=== PATIENT | female | born 1975 ===

== ENCOUNTER 2016-12-27 10:20 | Emergency (ER) | payer OTHER ==
[2016-12-27 10:33] VITALS: BMI 24.5
[2016-12-27] MEDS ORDERED: Sodium Chloride 0.9% 1,000 ML IV STA (10:59)
[2016-12-27] MEDS ORDERED: cefTRIAXone (Rocephin) 1 gm Inj IVPB ONE (10:59)
--- NOTE | 2016-12-27 11:02 | ED PDOC ---
HPI: General Adult Time Seen by Provider: 12/27/16 11:00 Chief Complaint (Nursing): Abdominal Pain Chief Complaint (Provider): abdominal pain/dysuria History Per: Patient (41 y/o female here with complaint of lower suprapubic pain ongoing x 1 week associated with hematuria and now notes bilateral back pain x 2 days. Has been on cipro x 4-5 days with no relief of symptoms. Denies any vomiting/notes nausea. Denies any fevers/chills. Has h/o Cxn in past.) Past Medical History Reviewed: Historical Data, Nursing Documentation, Vital Signs Vital Signs: Last Vital Signs Temp 98.0 F 12/27/16 17:04 Pulse 78 12/27/16 17:04 Resp 18 12/27/16 17:04 BP 107/67 12/27/16 17:04 Pulse Ox 98 12/27/16 17:23 - Family History Family History: States: No Known Family Hx - Home Medications Home Medications: Ambulatory Orders Medication Instructions Recorded Docusate Sodium [Colace] 100 mg PO BID #14 capsule 12/27/16 Doxycycline Monohydrate 100 mg PO BID #27 tablet 12/27/16 Metronidazole [Flagyl] 1 tab PO BID #14 tablet 12/27/16 Naproxen [Naprosyn Tab] 375 mg PO Q8 PRN #21 tab 12/27/16 Ondansetron [Zofran Odt] 4 mg PO Q8 PRN #10 odt 12/27/16 - Allergies Allergies/Adverse Reactions: Allergies Allergy/AdvReac Type Severity Reaction Status Date / Time No Known Allergies Allergy Verified 12/27/16 10:34 Review of Systems ROS Statement: Except As Marked, All Systems Reviewed And Found Negative Physical Exam - Reviewed Nursing Documentation Reviewed: Yes Vital Signs Reviewed: Yes - Physical Exam Appears: Positive for: Well, Non-toxic, No Acute Distress Head Exam: Positive for: ATRAUMATIC, NORMAL INSPECTION, NORMOCEPHALIC Skin: Positive for: Normal Color, Warm, DRY Eye Exam: Positive for: EOMI, Normal appearance, PERRL ENT: Positive for: Normal ENT Inspection Neck: Positive for: Normal, Painless ROM Cardiovascular/Chest: Positive for: Regular Rate, Rhythm Respiratory: Positive for: CNT, Normal Breath Sounds Gastrointestinal/Abdominal: Positive for: Normal Exam, Bowel Sounds, Soft Back: Positive for: Normal Inspection Extremity: Positive for: Normal ROM Neurologic/Psych: Positive for: Alert, Oriented - Laboratory Results Result Diagrams: 12/27/16 11:20 12/27/16 11:25 Urine POC: Negative Urine dip results: Negative for: Leukocyte Esterase, Blood, Nitrate, Ketones, Glucose, Bilirubin, Protein - ECG O2 Sat by Pulse Oximetry: 98 - Progress ED Course And Treament: morphine 2 mg iv x 1 dose zofran 4 mg iv x 1 dose NS 1 liter wide open ROcephin 2 gm iv x 1 dose UA wnl. CHlamydia/gonorrhea sent. CT abdomen/pelvis for evaluation of renal stone. Medical Decision Making Medical Decision Making: Time: 12:30 --Abdomen/Pelvis CT FINDINGS: There is limited evaluation of the solid organs without the administration of IV contrast. LOWER THORAX: No visible consolidation, pleural effusion, or pneumothorax. LIVER: Unremarkable unenhanced appearance. GALLBLADDER AND BILE DUCTS: Unremarkable unenhanced appearance. PANCREAS: Unremarkable unenhanced appearance. SPLEEN: 9 mm rounded structure in the left upper quadrant may reflect splenule or possibly uncalcified splenic artery aneurysm (coronal image 60, axial image 46) . Unenhanced spleen appears otherwise unremarkable. ADRENALS: Unremarkable unenhanced appearance. KIDNEYS AND URETERS: No hydronephrosis or obstructing renal calculus. BLADDER: The urinary bladder appears unremarkable. REPRODUCTIVE: Uterus is present. Enlarged somewhat cystic structure is noted within the left adnexa, possibly complex enlarged left ovarian cyst. Recommend pelvic ultrasound for further evaluation. APPENDIX: The appendix appears within normal limits of caliber. No secondary signs of acute appendicitis. BOWEL: The stomach is nondistended. Lack of oral contrast limits evaluation for bowel pathology. The bowel loops appear within normal limits of caliber without evidence of intestinal obstruction. Moderate constipation. PERITONEUM: No significant free fluid. No definite free air. LYMPH NODES: No bulky lymphadenopathy identified. VASCULATURE: No aortic aneurysm. BONES: No acute osseous abnormality is detected. OTHER FINDINGS: None. IMPRESSION: Enlarged somewhat cystic structure is noted within the left adnexa, possibly complex enlarged left ovarian cyst. Recommend pelvic ultrasound for further evaluation. 9 mm rounded structure in the left upper quadrant may reflect splenule or possibly uncalcified splenic artery aneurysm. Moderate constipation. Time: 16:25 Transvaginal US FINDINGS: UTERUS: Measures 9.2 x 5.4 x 5.1 cm. Anteverted. ENDOMETRIUM: Measures 1.2 cm in diameter. CERVIX: No cervical abnormality identified. RIGHT OVARY: Measures 3.0 x 3.3 x 2.4 cm. Blood flow is demonstrated. 2.2 x 2.2 x 1.4 cm simple appearing cyst. LEFT OVARY: Measures 5.5 x 5.3 x 4.2 cm. Blood flow is demonstrated. 3.1 x 2.5 x 3.0 cm and 3.7 x 3.0 x 2.1 cm complex cysts. FREE FLUID: No significant free fluid noted. OTHER FINDINGS: None. IMPRESSION: The left ovary is asymmetrically enlarged as compared to the right. 3.1 cm and 3.7 cm left complex ovarian cysts. Correlate clinically. Recommend 6 week ultrasound follow-up to assess for complete resolution. 2.2 cm simple appearing right ovarian cyst. Time 17:00 Upon provider reevaluation patient is feeling better, is medically stable, and requires no further treatment in the ED at this time. Patient will be discharged home with Rx for Colace 100 mg, Doxycycline Monohydrate 100 mg, Flagyl, Naprosyn 375 mg, and Zofran ODT 4 mg. Counseling was provided and all questions were answered regarding diagnosis and need for follow up with . There is agreement to discharge plan. Return if symptoms persist or worsen. Clinical Impression: Pelvic Pain and Ovarian Cyst Disposition - Clinical Impression Clinical Impression: Pelvic pain, Ovarian cyst - Patient ED Disposition Is Patient to be Admitted: No Counseled Patient/Family Regarding: Diagnosis, Need For Followup, Rx Given - Disposition [facility] Disposition: Routine/Home Disposition Time: 17:00 Condition: FAIR Prescriptions: Docusate Sodium [Colace] 100 mg PO BID #14 capsule Doxycycline Monohydrate 100 mg PO BID #27 tablet Metronidazole [Flagyl] 1 tab PO BID #14 tablet Naproxen [Naprosyn Tab] 375 mg PO Q8 PRN #21 tab PRN Reason: Pain, Moderate (4-7) Ondansetron [Zofran Odt] 4 mg PO Q8 PRN #10 odt PRN Reason: Nausea/Vomiting Instructions: Pelvic Inflammatory Disease (ED), Ovarian Cyst (ED) Forms: [facility] ED School/Work Excuse Print Language: AMHARIC
[2016-12-27 11:29] LABS: SQUAMOUS EPITHIAL 1 /hpf (0-5); URINE AMORPHOUS SEDIMENT RARE /ul (<OCC); URINE BILIRUBIN NEGATIVE (NEGATIVE); URINE BLOOD NEGATIVE (NEGATIVE); URINE CLARITY CLEAR (Clear); URINE COLOR YELLOW (YELLOW); URINE GLUCOSE (UA) NEG (Normal); URINE LEUKOCYTE ESTERASE NEG Leu/uL (Negative); URINE NITRATE NEGATIVE (NEGATIVE); URINE PROTEIN NEGATIVE (NEGATIVE); URINE UROBILINOGEN 0.2-1.0 mg/dL (0.2-1.0)
[2016-12-27] MEDS ORDERED: cefTRIAXone (Rocephin) 1 gm Inj ONE (11:33)
[2016-12-27 11:43] LABS: BASO % 0.3 % (0.0-2.0); EOS # 0.2 K/uL (0.0-0.7); EOS % 2.9 % (0.0-4.0); HEMOGLOBIN 12.9 g/dL (12.0-16.0); LYMPH # 1.9 K/uL (1.0-4.3); MEAN CELL VOLUME 88.2 fl (81.0-99.0); MEAN CORPUSCULAR HEMOGLOBIN 29.4 pg (27.0-31.0); MEAN CORPUSCULAR HGB CONC 33.4 g/dL (33.0-37.0); MEAN PLATELET VOLUME 7.7 fl (7.2-11.7); MONO # 0.5 K/uL (0.0-0.8); MONO % 6.2 % (0.0-10.0); NEUT # 5.7 K/uL (1.8-7.0); NEUT % 67.6 % (50.0-75.0); RBC 4.38 Mil/uL (3.80-5.20); WHITE BLOOD COUNT 8.4 K/uL (4.8-10.8)
[2016-12-27 11:59] LABS: ALB/GLOB RATIO 1.3 (1.0-2.1); ALBUMIN 4.2 g/dL (3.5-5.0); ALT/SGPT 30 U/L (9-52); AST/SGOT 32 U/L (14-36); BLOOD UREA NITROGEN 12 mg/dl (7-17); CALCIUM 9.5 mg/dL (8.4-10.2); GFR AFRICAN-AMERICAN > 60; GFR NON-AFRICAN AMERICAN > 60; LIPASE 73 U/L (23-300)
--- NOTE | 2016-12-27 12:32 | CT ---
PROCEDURE: CT Abdomen and Pelvis without Oral or IV contrast. HISTORY: evaluation for kidney stone COMPARISON: None available. TECHNIQUE: Contiguous axial images of the abdomen and pelvis. No oral or IV contrast administered. Coronal and Sagittal reformats generated and reviewed. Radiation dose: Total exam DLP = 747.44 mGy-cm. This CT exam was performed using one or more of the following dose reduction techniques: Automated exposure control, adjustment of the mA and/or kV according to patient size, and/or use of iterative reconstruction technique. FINDINGS: There is limited evaluation of the solid organs without the administration of IV contrast. LOWER THORAX: No visible consolidation, pleural effusion, or pneumothorax. LIVER: Unremarkable unenhanced appearance. GALLBLADDER AND BILE DUCTS: Unremarkable unenhanced appearance. PANCREAS: Unremarkable unenhanced appearance. SPLEEN: 9 mm rounded structure in the left upper quadrant may reflect splenule or possibly uncalcified splenic artery aneurysm (coronal image 60, axial image 46). Unenhanced spleen appears otherwise unremarkable. ADRENALS: Unremarkable unenhanced appearance. KIDNEYS AND URETERS: No hydronephrosis or obstructing renal calculus. BLADDER: The urinary bladder appears unremarkable. REPRODUCTIVE: Uterus is present. Enlarged somewhat cystic structure is noted within the left adnexa, possibly complex enlarged left ovarian cyst. Recommend pelvic ultrasound for further evaluation. APPENDIX: The appendix appears within normal limits of caliber. No secondary signs of acute appendicitis. BOWEL: The stomach is nondistended. Lack of oral contrast limits evaluation for bowel pathology. The bowel loops appear within normal limits of caliber without evidence of intestinal obstruction. Moderate constipation. PERITONEUM: No significant free fluid. No definite free air. LYMPH NODES: No bulky lymphadenopathy identified. VASCULATURE: No aortic aneurysm. BONES: No acute osseous abnormality is detected. OTHER FINDINGS: None. IMPRESSION: Enlarged somewhat cystic structure is noted within the left adnexa, possibly complex enlarged left ovarian cyst. Recommend pelvic ultrasound for further evaluation. 9 mm rounded structure in the left upper quadrant may reflect splenule or possibly uncalcified splenic artery aneurysm. Moderate constipation.
[2016-12-27 14:21] VITALS: RESP 18
--- NOTE | 2016-12-27 16:27 | US ---
HISTORY: evaluate for ovarian cyst/abscess COMPARISON: CT abdomen and pelvis without contrast performed 12/27/16 TECHNIQUE: Transvaginal pelvic ultrasound FINDINGS: UTERUS: Measures 9.2 x 5.4 x 5.1 cm. Anteverted. ENDOMETRIUM: Measures 1.2 cm in diameter. CERVIX: No cervical abnormality identified. RIGHT OVARY: Measures 3.0 x 3.3 x 2.4 cm. Blood flow is demonstrated. 2.2 x 2.2 x 1.4 cm simple appearing cyst. LEFT OVARY: Measures 5.5 x 5.3 x 4.2 cm. Blood flow is demonstrated. 3.1 x 2.5 x 3.0 cm and 3.7 x 3.0 x 2.1 cm complex cysts. FREE FLUID: No significant free fluid noted. OTHER FINDINGS: None. IMPRESSION: The left ovary is asymmetrically enlarged as compared to the right. 3.1 cm and 3.7 cm left complex ovarian cysts. Correlate clinically. Recommend 6 week ultrasound follow-up to assess for complete resolution. 2.2 cm simple appearing right ovarian cyst.
[2016-12-27] MEDS ORDERED: cefTRIAXone (Rocephin) 250 mg Inj IM ONE (16:44)
[2016-12-27 17:05] VITALS: TEMP 98
[2016-12-27 18:23] VITALS: BP 107/68; PULSE 72; O2SAT 100
== END 2016-12-27 18:24 | disposition home or self-care (01) ==
LOC: H.ER 10:20
DX: N83.202 Unspecified ovarian cyst, left side (principal); K59.00 Constipation, unspecified
CPT/HCPCS: 74176; 76830; 80053; 81003; 81025; 83690; 85025; 87040; 87086; 87491; 87591; 96374; 96375; 96376; 99284; J0696; J2270; J2405; J7040